=== PATIENT | female | born 1945 | race Caucasian/White ===

== ENCOUNTER 2020-05-06 12:58 | Outpatient (RCR) | payer MEDICARE, OTHER, SELFPAY | END 2020-05-17 23:59 | disposition home or self-care (01) | LOC: GPT 12:58 | PROVIDERS: Family Provider Family Medicine; PCP Family Medicine; Referring Provider Orthopaedic Surgery Foot and Ankle Surgery; Visit Provider Orthopaedic Surgery Foot and Ankle Surgery | DX: M25.571 Pain in right ankle and joints of right foot (principal); M19.079 Primary osteoarthritis, unspecified ankle and foot | CPT/HCPCS: 97110; 97140; 97161; 97530 ==

== ENCOUNTER 2020-05-18 06:00 | Outpatient (RCR) | payer MEDICARE, OTHER, SELFPAY | END 2020-06-17 23:59 | disposition home or self-care (01) | LOC: GPT 06:00 | PROVIDERS: Family Provider Family Medicine; PCP Family Medicine; Referring Provider Orthopaedic Surgery Foot and Ankle Surgery; Visit Provider Orthopaedic Surgery Foot and Ankle Surgery | DX: M25.571 Pain in right ankle and joints of right foot (principal); M19.079 Primary osteoarthritis, unspecified ankle and foot | CPT/HCPCS: 97032; 97110; 97112; 97140; 97164; 97530; 97760 ==

== ENCOUNTER 2020-06-18 06:00 | Outpatient (RCR) | payer MEDICARE, OTHER, SELFPAY | END 2020-07-18 23:59 | disposition home or self-care (01) | LOC: GPT 06:00 | PROVIDERS: Family Provider Family Medicine; PCP Family Medicine; Referring Provider Orthopaedic Surgery Foot and Ankle Surgery; Visit Provider Orthopaedic Surgery Foot and Ankle Surgery | DX: M25.571 Pain in right ankle and joints of right foot (principal) | CPT/HCPCS: 97032; 97110; 97112; 97140; 97530 ==

== ENCOUNTER → 2022-06-01 10:13 | Outpatient (BNVA) | payer MEDICARE, OTHER, SELFPAY | PROVIDERS: Family Provider Family Medicine; PCP Family Medicine; Visit Provider Family Medicine | DX: R05.9 Cough, unspecified (principal); J11.1 Influenza due to unidentified influenza virus with other respiratory manifestations | CPT/HCPCS: 87400 ==

== ENCOUNTER → 2024-09-01 17:36 | Outpatient (BNVA) | payer MEDICARE, OTHER, SELFPAY | PROVIDERS: Family Provider Family Medicine; PCP Family Medicine; Visit Provider Family Medicine | DX: I10 Essential (primary) hypertension (principal); E11.65 Type 2 diabetes mellitus with hyperglycemia; E78.2 Mixed hyperlipidemia; D64.9 Anemia, unspecified; G31.84 Mild cognitive impairment of uncertain or unknown etiology; R30.0 Dysuria | CPT/HCPCS: 80053; 80061; 82043; 82607; 83036; 83540; 84443; 85025; 87086 ==

== ENCOUNTER 2024-10-13 14:15 | Inpatient (IN) | payer MEDICARE, OTHER, SELFPAY ==
[2024-10-13 14:26] VITALS: BP 141/77; PULSE 87; RESP 22; TEMP 36.9; O2SAT 94; BMI 37.0
--- NOTE | 2024-10-13 17:19 | XRR_ITS ---
PROCEDURE INFORMATION: Exam: XR Chest Exam date and time: 10/13/2024 5:24 PM Age: 78 years old Clinical indication: Other: Congestion; Prior surgery; Surgery date: 1-6 months; Surgery type: Aortic valve; Additional info: Weakness TECHNIQUE: Imaging protocol: Radiologic exam of the chest. Views: 1 view. COMPARISON: No relevant prior studies available. FINDINGS: Lungs: The lungs are clear. Pleural spaces: No pneumothorax or pleural effusion. Heart/Mediastinum: Heart size is enlarged. Prosthetic aortic valve is present. Mediastinal contours unremarkable. Bones/joints: No acute osseous or soft tissue abnormality. Right shoulder arthroplasty partially seen without evidence of hardware complication. XR/XR chest 1V portable [id number] IMPRESSION: 1. The lungs are clear. 2. Cardiomegaly.
[2024-10-13 19:07] LABS: Basophils # 0.1 10^3/uL (0.0-0.1); Basophils % 0.3 %; Eosinophils % 0.2 %; Hematocrit 32.4 % (36-47); Lymphocytes # 1.3 10^3/uL (0.8-4.8); Lymphocytes % 7.4 %; Mean Corpuscular HGB Conc 32.4 g/dL (30-55); Mean Corpuscular Hemoglobin 27.6 pg (27-33); Mean Corpuscular Volume 85.3 fl (85-98); Mean Platelet Volume 8.9 fL (7.4-10.4); Monocytes # 0.9 10^3/uL (0.2-0.9); Monocytes % 5.2 %; Neutrophils # 15.13 10^3/uL (1.8-7.7); Neutrophils % 85.6 %; Nucleated Red Blood Cells % 0 %; Platelet Count 131 10^3/cmm (157-399); Red Cell Distribution Width 14.5 % (12.1-15.1); White Blood Count 17.66 10^3/uL (3.29-11.43)
[2024-10-13 19:23] LABS: Lactic Sepsis W/Reflex 1.1 mmol/L (0.5-2.2)
[2024-10-13 19:27] LABS: Alanine Aminotransferase 9 U/L (0-33); Albumin Level 3.6 g/dL (3.5-5.2); Alkaline Phosphatase 109 U/L (35-105); Anion Gap 20.1 (5-19); Aspartate Amino Transferase 11 U/L (0-32); Blood Urea Nitrogen 10 mg/dL (8-23); Carbon Dioxide 18 mmol/L (22-29); Chloride 91 mmol/L (98-107); Creatinine Clr Calc Pharmacy 58.3414; Globulin 3.2 g/dL (1.3-4.6); Glucose 91 mg/dL (65-115); Osmolality Calculated 259 mOsm/kg (285-295); Potassium 4.1 mmol/L (3.5-5.1); Sodium 125 mmol/L (136-145); Total Bilirubin 0.7 mg/dL (0.15-1.2); Total Protein 6.8 g/dL (6.6-8.7)
[2024-10-13 21:26] VITALS: BP 156/81; PULSE 85; RESP 16; O2SAT 99
[2024-10-13 22:03] VITALS: BP 159/89; PULSE 84; RESP 18; O2SAT 98
[2024-10-13 22:17] LABS: Bilirubin Urine Negative (Negative); Blood Urine Negative (Negative); Glucose Urine UA Negative (Normal); Ketones Urine Trace (Negative); Leukocyte Esterase Urine 1+ (Negative); Nitrate Urine Negative (Negative); Protein Urine 1+ (Negative); Specific Gravity, Urine 1.016 (1.005-1.030); Urine Appearance Cloudy (CLEAR); pH Urine 5.5 (5-7)
--- NOTE | 2024-10-13 22:18 | W.ED.WEAKNES ---
HPI - Weakness General: Chief complaint: Weakness Stated complaint: dr felder, congestion, n/v, pain when walking Time Seen by Provider: 10/13/24 21:24 History of Present Illness: Patient is a generally well-appearing 78-year-old female seen for generalized weakness, nausea, vomiting, confusion which have been getting worse over the last few days. She also complains of bilateral bottom of the foot pain which is worse with walking better with rest. She denies cough, fever, chest pain, shortness of breath, headache, neck pain, visual disturbance, and has no abdominal pain associate with nausea and vomiting. She has not had any diarrhea. She has a history of a bovine heart valve replacement but does not take blood thinner medication. She denies dysuria and frequency. states that previously she is able to walk around just fine but today she requires full assist just to transfer from the bed to the chair and needs significant help getting to the bathroom. Her general weakness is the cause for visit emergency department. [facility] PFSH: Medical History (Updated 10/14/24 @ 02:23 by Mario Ivan MD) Mild cognitive impairment SLUMS 18 on 09.01.24 Anemia Cervical spondylosis Hx of ovarian cyst had seen Dr. Do--stable over 2 yrs, no further f/u Hx of bladder cancer last visit with urologist Dr. Caceres at [facility] was 11/02--released due to no recurrence over 5 yrs Aortic stenosis, severe [facility] cardio--now has had TAVR Leiomyoma of uterus incidental Mixed hyperlipidemia Hypertension, essential Rheumatoid arthritis seeing [facility] rheumatology Type 2 diabetes mellitus with hyperglycemia Surgical History (Updated 09/01/24 @ 15:37 by Suly Christie MD) History of transcatheter aortic valve replacement (TAVR) 2024 Hx of cardiac cath 06.03.24 AT [facility]--no CAD; done for pre-op TAVR Hx of vascular surgery IR for laser arterectomy and angioplasty of DP and PT arteries of R foot at [place] 2020 History of arthroplasty of right shoulder Hx of unilateral salpingectomy Right Hx of transurethral destruction of bladder lesion bladder cancer X 2 Hx of tonsillectomy Hx of abdominoplasty Hx of breast augmentation Hx of bilateral cataract extraction History of lumbar spinal fusion 4.3.17 History of ankle surgery R ankle arthrodesis with kayla bone graft and augment; 2019 Hx of colonoscopy with polypectomy 1.19.24 tubular adenomas; no further f/u for screening due to age Family History Mother CAD (coronary artery disease) Father CAD (coronary artery disease) Social History Smoking and tobacco/nicotine status: former use of tobacco/nicotine Quit status (tobacco/nicotine): has quit using Year quit tobacco: 2003 Alcohol intake: current Alcohol intake frequency: few times a month Alcohol type: beer and wine Substance/Drug Use: never Household members: spouse Marital status: Number of children: 3 Highest education level completed: Some College, No Degree Current occupational status: retired 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 No meningismus. Resp: COMMON NORMALS: normal respiratory effort and No retractions Cardio: COMMON NORMALS: regular rate, regular rhythm and No murmurs present (Cardio) RATE: regular rate RHYTHM: regular rhythm GI: COMMON NORMALS: Normal to inspection, nondistended, normoactive bowel sounds present, Soft to palpation and non-tender PALPATION: Yes Soft to palpation Extremity: OTHER: Trace edema on the bilateral feet and lower legs. Tenderness with palpation of the pads of both feet. Robust pulses both DP and TP by bilaterally. Neuro: COMMON NORMALS: patient oriented x3 SENSORIUM/ORIENTATION: Yes alert OTHER: No lateralizing deficits of strength or sensation. Generally weak. Skin: COMMON NORMALS: no rashes or lesions noted GENERAL SKIN EXAM: no rashes or lesions noted Course Vital Signs: Vital signs: Vital Signs Temperature 98.5 F 10/13/24 14:26 Pulse Rate 86 10/14/24 01:00 Respiratory Rate 20 H 10/14/24 01:00 Blood Pressure 152/69 10/14/24 01:00 Pulse Oximetry 94 10/14/24 01:00 Oxygen Delivery Me thod Room Air 10/13/24 14:26 MDM - Weakness Medical Decision Making In summary, patient is a previously well 78-year-old female from home seen for profound weakness, nausea, vomiting, and mild confusion. Urinalysis is not completely compelling but could represent UTI for which she was given ceftriaxone. White blood cell count is significantly elevated at 17,000. She is hyponatremic at 125. This may be due to her nausea and vomiting and decreased oral intake. Regardless, she is profoundly weak when normally she is able to walk around without difficulty. She has no lateralizing deficits to imply stroke. She will be given IV fluids to gently correct her hyponatremia and admitted to the hospitalist service for further observation and care Lab Data 10/13/24 18:45 10/13/24 18:45 Radiology Impressions Chest X-Ray 10/13/24 17:19 IMPRESSION: 1. The lungs are clear. 2. Cardiomegaly. Laboratory Results WBC 17.66 10^3/uL (3.29-11.43) H 10/13/24 18:45 RBC 3.80 10^6/uL (3.85-5.65) L 10/13/24 18:45 Hgb 10.50 g/dL (11.27-16.99) L 10/13/24 18:45 Hct 32.4 % (36-47) L 10/13/24 18:45 MCV 85.3 fl (85-98) 10/13/24 18:45 MCH 27.6 pg (27-33) 10/13/24 18:45 MCHC 32.4 g/dL (30-55) 10/13/24 18:45 RDW 14.5 % (12.1-15.1) 10/13/24 18:45 Plt Count 131 10^3/cmm (157-399) L 10/13/24 18:45 MPV 8.9 fL (7.4-10.4) 10/13/24 18:45 Neut % (Auto) 85.6 % 10/13/24 18:45 Lymph % (Auto) 7.4 % 10/13/24 18:45 [place] % (Auto) 5.2 % 10/13/24 18:45 Eos % (Auto) 0.2 % 10/13/24 18:45 Baso % (Auto) 0.3 % 10/13/24 18:45 Neut # (Auto) 15.13 10^3/uL (1.8-7.7) H 10/13/24 18:45 Lymph # (Auto) 1.3 10^3/uL (0.8-4.8) 10/13/24 18:45 [place] # (Auto) 0.9 10^3/uL (0.2-0.9) 10/13/24 18:45 Eos # (Auto) 0.0 10^3/uL (0.0-0.8) 10/13/24 18:45 Baso # (Auto) 0.1 10^3/uL (0.0-0.1) 10/13/24 18:45 Nucleated RBC % (auto) 0 % 10/13/24 18:45 Nucleated RBCs # 0.0 /100WBC 10/13/24 18:45 Sodium 125 mmol/L (136-145) L 10/13/24 18:45 Potassium 4.1 mmol/L (3.5-5.1) 10/13/24 18:45 Chloride 91 mmol/L (98-107) L 10/13/24 18:45 Carbon Dioxide 18 mmol/L (22-29) L 10/13/24 18:45 Anion Gap 20.1 (5-19) H 10/13/24 18:45 BUN 10 mg/dL (8-23) 10/13/24 18:45 Creatinine 0.7 mg/dL (0.5-0.9) 10/13/24 18:45 GFR Calculation Not Reportable 10/13/24 18:45 Glucose 91 mg/dL (65-115) 10/13/24 18:45 Calculated Osmolality 259 mOsm/kg (285-295) L 10/13/24 18:45 Lactic Acid 1.1 mmol/L (0.5-2.2) 10/13/24 18:45 Calcium 9.0 mg/dL (8.5-10.5) 10/13/24 18:45 Total Bilirubin 0.7 mg/dL (0.15-1.2) 10/13/24 18:45 AST 11 U/L (0-32) 10/13/24 18:45 ALT 9 U/L (0-33) 10/13/24 18:45 Alkaline Phosphatase 109 U/L (35-105) H 10/13/24 18:45 Troponin T Baseline 18 ng/L (0-10) H 10/13/24 22:55 Troponin T 120 Minute 17.18 ng/L (0-10) H 10/14/24 00:38 Delta Troponin T -0.82 ABS# (0-10) L 10/14/24 00:38 Total Protein 6.8 g/dL (6.6-8.7) 10/13/24 18:45 Albumin 3.6 g/dL (3.5-5.2) 10/13/24 18:45 Globulin 3.2 g/dL (1.3-4.6) 10/13/24 18:45 Procalcitonin 0.70 ng/mL (0-0.5) H 10/13/24 18:45 Urine Color Yellow (Yellow) 10/13/24 22:04 Urine Appearance Cloudy (CLEAR) A 10/13/24 22:04 Urine pH 5.5 (5-7) 10/13/24 22:04 Ur Specific [place] 1.016 (1.005-1.030) 10/13/24 22:04 Urine Protein 1+ (Negative) A 10/13/24 22:04 Urine Glucose (UA) Negative (Normal) 10/13/24 22:04 Urine Ketones Trace (Negative) 10/13/24 22:04 Urine Blood Negative (Negative) 10/13/24 22:04 Urine Nitrate Negative (Negative) 10/13/24 22:04 Urine Bilirubin Negative (Negative) 10/13/24 22:04 Urine Urobilinogen 1.0 mg/dL (Negative) 10/13/24 22:04 Ur Leukocyte Esterase 1+ (Negative) A 10/13/24 22:04 Urine RBC 11-20 /hpf (0-2) H 10/13/24 22:04 Urine WBC 6-10 /hpf (0-5) 10/13/24 22:04 Ur Squamous Epith Cells 21-50 /hpf (0-5) H 10/13/24 22:04 Amorphous Sediment Not Reportable 10/13/24 22:04 Urine Bacteria 3+ /hpf (NONE) H 10/13/24 22:04 Hyaline Casts 9.07 /lpf 10/13/24 22:04 All radiology interpretation(s) finalized by discharge Discharge Plan Discharge Patient Disposition: Admitted As Inpatient Admit Provider: Mario Ivan Clinical Impression: Acute UTI, Acute hyponatremia Condition: Stable Prescriptions: No Action amlodipine 5 mg tablet 5 mg PO DAILY Qty: 90 3RF hydrochlorothiazide 12.5 mg tablet 12.5 mg PO DAILY Qty: 90 3RF omeprazole 40 mg capsule,delayed release(DR/EC) 40 mg PO DAILY Qty: 90 3RF rosuvastatin 10 mg tablet 10 mg PO DAILY Qty: 90 3RF trazodone 50 mg tablet 50 mg PO DAILY Qty: 90 3RF tramadol 50 mg tablet 50 mg PO Q6H PRN (Reason: pain) 90 Days Qty: 90 0RF leflunomide 20 mg tablet 20 mg PO DAILY halobetasol propionate 0.05 % cream 1 applic topical DAILY aspirin [Adult Aspirin Regimen] 81 mg tablet,delayed release (DR/EC) 81 mg PO DAILY lisinopril 40 mg tablet 20 mg PO ONCE Qty: 90 1RF hydroxychloroquine 200 mg tablet 200 mg PO BID Qty: 60 2RF Referrals: Suly Christie MD [Primary Care Provider] - Print Language: Polish Coding Level of Care Code ED Genetic Supervisor for g Fwd Related Data Home Medications ?Medication ?Instructions ?Recorded ?Confirmed aspirin 81 mg tablet,delayed 81 mg PO DAILY 03/06/24 09/01/24 release (Adult Aspirin Regimen) halobetasol propionate 0.05 % 1 applic topical DAILY 03/06/24 09/01/24 topical cream leflunomide 20 mg tablet 20 mg PO DAILY 03/06/24 09/01/24 Previous Rx's ?Medication ?Instructions ?Recorded lisinopril 40 mg tablet 20 mg (1/2 x 40 mg) PO ONCE #90 08/19/24 tabs amlodipine 5 mg tablet 5 mg PO DAILY #90 tabs 09/01/24 hydrochlorothiazide 12.5 mg tablet 12.5 mg PO DAILY #90 tabs 09/01/24 omeprazole 40 mg capsule,delayed 40 mg PO DAILY #90 caps 09/01/24 release rosuvastatin 10 mg tablet 10 mg PO DAILY #90 tabs 09/01/24 tramadol 50 mg tablet 50 mg PO Q6H PRN pain 90 days #90 09/01/24 tabs trazodone 50 mg tablet 50 mg PO DAILY #90 tabs 09/01/24 hydroxychloroquine 200 mg tablet 200 mg PO BID #60 tabs 09/16/24 Allergies Allergy/AdvReac Type Severity Reaction Status Date / Time adhesove tape Allergy blisters Uncoded 10/13/24 14:42
[2024-10-13 22:19] LABS: Bacteria Urine 3+ /hpf; Hyaline Casts Urine 9.07 /lpf; Squamous Epithelial Cell Urine 21-50 /hpf (0-5)
--- NOTE | 2024-10-13 22:20 | ECG_ITS ---
[facility] Test Date: 2024-10-14 Pat Name: Breanne Gilmore Department: Room: Gender: Female Process Pumper: : 1945 Requested By: Mauricio Peacre Order Number: [id number] Reading MD: Measurements Intervals [place] Rate: 88 P: 31 NH: 172 QRS: -32 QRSD: 94 T: 32 QT: 334 QTc: 406 Interpretive Statements SINUS RHYTHM WITH SINUS ARRHYTHMIA LEFT AXIS DEVIATION [QRS AXIS < -30] LOW QRS VOLTAGE IN PRECORDIAL LEADS [QRS DEFLECTION < 1.0 mV IN CHEST LEADS] PATTERN CONSISTENT WITH PULMONARY DISEASE No previous ECG available for comparison [email or web address]
[2024-10-13 22:29] LABS: Add Urine Culture? No; UA Slide Review UA Slide Review Perf; Urine Color Yellow (Yellow)
[2024-10-13 23:17] VITALS: BP 139/103; PULSE 87; RESP 24; O2SAT 97
[2024-10-13 23:23] LABS: Troponin(5th) Baseline 18 ng/L (0-10)
[2024-10-14] VITALS (8 sets, daily range): BP systolic 140–169; BP diastolic 69–84; PULSE 83–94; RESP 17–22; TEMP 36.8–37.3; O2SAT 91–98; BMI 39.0; BMI 37.5
[2024-10-14 01:05] LABS: Troponin 5 2HR 17.18 ng/L (0-10)
[2024-10-14 01:06] LABS: Troponin 5 2HR Delta -0.82 ABS# (0-10)
[2024-10-14] MEDS: cefTRIAXone 2,000 mg SDV 2000 MG IVP (01:11)
--- NOTE | 2024-10-14 02:18 | PM.HP ---
Providers/Chief Complaint Admitting Physician: Mario Ivan MD Primary Care Provider: Suly Christie MD Chief Complaint: dr emerita, congestion, n/v, pain when walking History of Present Illness Breanne Gilmore is a 78 year old female with history of rheumatoid arthritis is on leflunomide and hydroxychloroquine. Last several days she has had nausea vomiting loss of appetite some confusion intermittently and weakness. She has not had fevers or chills. She has had cough productive of just clear mucus. She denies dysuria but her urine was positive for bacteria on straight cath. She also has peripheral white count of 17,000. She is accompanied by her . Her history giving is a little off today but he reminds her of nausea that she has had and reports intermittent confusion. Patient states she has been on HCTZ for greater than 5 years and runs low sodium all the time. Her last sodium in August was 135 Review of Systems Narrative: General no fevers chills Cardiovascular no chest pain or palpitations Respiratory positive for cough with clear mucus GI positive nausea vomiting no diarrhea constipation Musculoskeletal she has chronic swelling in her injured right leg. Left leg not swelling Neuro she denies seizures or stroke Medications/Allergies Home Medications ?Medication ?Instructions ?Recorded ?Confirmed ?Last Taken ?Type aspirin 81 mg tablet,delayed 81 mg PO DAILY 03/06/24 09/01/24 Unknown History release (Adult Aspirin Regimen) halobetasol propionate 0.05 % 1 applic topical DAILY 03/06/24 09/01/24 Unknown History topical cream leflunomide 20 mg tablet 20 mg PO DAILY 03/06/24 09/01/24 Unknown History lisinopril 40 mg tablet 20 mg (1/2 x 40 mg) PO ONCE #90 08/19/24 09/01/24 Unknown Rx tabs amlodipine 5 mg tablet 5 mg PO DAILY #90 tabs 09/01/24 09/01/24 Unknown Rx hydrochlorothiazide 12.5 mg tablet 12.5 mg PO DAILY #90 tabs 09/01/24 09/01/24 Unknown Rx omeprazole 40 mg capsule,delayed 40 mg PO DAILY #90 caps 09/01/24 09/01/24 Unknown Rx release rosuvastatin 10 mg tablet 10 mg PO DAILY #90 tabs 09/01/24 09/01/24 Unknown Rx tramadol 50 mg tablet 50 mg PO Q6H PRN pain 90 days #90 03/17/25 03/17/25 Unknown Rx tabs trazodone 50 mg tablet 50 mg PO DAILY #90 tabs 09/01/24 09/01/24 Unknown Rx hydroxychloroquine 200 mg tablet 200 mg PO BID #60 tabs 09/16/24 Unknown Rx Allergies Allergy/AdvReac Type Severity Reaction Status Date / Time adhesove tape Allergy blisters Uncoded 10/13/24 14:42 PFSH Acute PFSH: Medical History (Updated 10/14/24 @ 02:23 by Mario Ivan MD) Mild cognitive impairment SLUMS 18 on 09.01.24 Anemia Cervical spondylosis Hx of ovarian cyst had seen Dr. Do--stable over 2 yrs, no further f/u Hx of bladder cancer last visit with urologist Dr. Caceres at [facility] was 11/02--released due to no recurrence over 5 yrs Aortic stenosis, severe [facility] cardio--now has had TAVR Leiomyoma of uterus incidental Mixed hyperlipidemia Hypertension, essential Rheumatoid arthritis seeing [facility] rheumatology Type 2 diabetes mellitus with hyperglycemia Surgical History (Updated 09/01/24 @ 15:37 by Suly Christie MD) History of transcatheter aortic valve replacement (TAVR) 2024 Hx of cardiac cath 06.03.24 AT [facility]--no CAD; done for pre-op TAVR Hx of vascular surgery IR for laser arterectomy and angioplasty of DP and PT arteries of R foot at 2020 History of arthroplasty of right shoulder Hx of unilateral salpingectomy Right Hx of transurethral destruction of bladder lesion bladder cancer X 2 Hx of tonsillectomy Hx of abdominoplasty Hx of breast augmentation Hx of bilateral cataract extraction History of lumbar spinal fusion 4.3.17 History of ankle surgery R ankle arthrodesis with kayla bone graft and augment; 2019 Hx of colonoscopy with polypectomy 07.06.23 tubular adenomas; no further f/u for screening due to age Family History Mother CAD (coronary artery disease) Father CAD (coronary artery disease) Social History Smoking and tobacco/nicotine status: former use of tobacco/nicotine Quit status (tobacco/nicotine): has quit using Year quit tobacco: 2004 Alcohol intake: current Alcohol intake frequency: few times a month Alcohol type: beer and wine Substance/Drug Use: never Household members: spouse Marital status: Number of children: 3 Highest education level completed: Some College, No Degree Current occupational status: retired 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, 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 Vitals/I&O/Wt Last Vital Signs Temp 98.5 F 10/13/24 14:26 Pulse 86 10/14/24 01:00 Resp 20 H 10/14/24 01:00 BP 152/69 10/14/24 01:00 Pulse Ox 94 10/14/24 01:00 O2 Del Method Room Air 10/13/24 14:26 Weight last 48 hrs Weight 86.183 kg Physical Exam Narrative: General well-developed well-nourished obese female in no acute cardiopulmonary distress CV regular rate and rhythm Lungs clear to auscultation bilaterally Abdomen positive bowel sound soft nontender Calves left side no edema right ankle with postsurgical change and shortening of the tibia fibula lower leg as well as some deformity of the foot and edema in the foot Skin warm and dry Mentation she is alert and oriented x 3 and pleasant Data 10/13/24 18:45 10/13/24 18:45 Micro: Microbiology 10/13/24 18:45 Blood Culture - Preliminary Blood SPECIMEN COLLECTED 10/13/24 18:45 Blood Culture - Preliminary Blood SPECIMEN COLLECTED A&P Assessment and plan (1) Acute hyponatremia: Patient sodium 125 and she has had confusion nausea vomiting weakness we will replace with saline drip and stop HCTZ. I do not think she is a good candidate for that medication based on her reported hyponatremia but her last sodium here was only 135 not that low (2) Rheumatoid arthritis: She is immunosuppressed on leflunomide and hydroxychloroquine. Will continue with Rocephin pending urine and blood cultures Qualifiers: Rheumatoid arthritis location: multiple sites Rheumatoid factor presence: with rheumatoid factor Qualified Code(s): M05.79 - Rheumatoid arthritis with rheumatoid factor of multiple sites without organ or systems involvement (3) Hx of bladder cancer: Question of UTI but she has history of bladder cancer with hematuria and bacteriuria. Await urine studies this may need to be reevaluated for possible bladder tumor (4) UTI (urinary tract infection): As above although she is asymptomatic for dysuria PDMP PDMP Reviewed: Not Reviewed Attestations Medical Necessity Statement*: Patient admitted to the hospital for anticipated greater than 2 nights for correction of hyponatremia confusion and initiation of PT and OT Coding Level of Care Code 58971 Diagnoses Acute hyponatremia E87.1 Rheumatoid arthritis involving multiple sites with positive rheumatoid factor M05.79 Rheumatoid arthritis location: multiple sites Rheumatoid factor presence: with rheumatoid factor Hx of bladder cancer Z85.51 UTI (urinary tract infection) N39.0 Time Spent (min) 70
[2024-10-14] MEDS: enoxaparin 40 mg/0.4 mL Syringe SUBCUT (04:17)
[2024-10-14] MEDS: sodium chlor 0.9% + KCl 20 mEq 20 MEQ/1,000 ML BAG 100 MEQ IV (04:17)
[2024-10-14] MEDS: amlodipine 5 mg Tablet PO (07:34)
[2024-10-14] MEDS: trazodone 50 mg Tablet PO (07:34)
[2024-10-14] MEDS: aspirin 81 mg EC Tablet PO (07:35)
[2024-10-14] MEDS: pantoprazole DR 40 mg Tablet PO (07:35)
[2024-10-14] MEDS: atorvastatin 40 mg Tablet DOBHOFF (07:35)
--- NOTE | 2024-10-14 10:33 | P.PN_ITS ---
Subjective 2 Subjective: She is reporting feeling little bit better today. She wakes up easily to voice. She is oriented to place and year. She has not had any further nausea or vomiting so far. She was able to tolerate part of her breakfast this morning. Vitals/I&O/Wt Last Vital Signs Temp 99.1 F 10/14/24 08:00 Pulse 87 10/14/24 08:00 Resp 18 10/14/24 08:00 BP 160/72 10/14/24 08:00 Pulse Ox 97 10/14/24 08:00 O2 Del Method Room Air 10/14/24 08:00 10/13/24 10/14/24 10/14/24 22:59 06:59 14:59 Intake Total 354 / 354 Balance 354 / 354 Weight last 48 hrs Weight 87.09 kg Weight 87.226 kg Weight 90.718 kg Weight 86.183 kg Physical Exam 2 Const: COMMON NORMALS: patient oriented x3 and alert GENERAL APPEARANCE: c ooperative ORIENTATION/CONSCIOUSNESS: Yes awake HENMT: COMMON NORMALS: oropharynx normal Neck/C-Spine: COMMON NORMALS: no JVD Resp: COMMON NORMALS: normal respiratory effort and clear to auscultation bilaterally AUSCULTATION: clear to auscultation bilaterally Cardio: COMMON NORMALS: no JVD, regular rhythm, S1 normal heart sound present, S2 normal heart sound present and No murmurs present (Cardio) RHYTHM: regular rhythm HEART SOUNDS: S1 normal heart sound present and S2 normal heart sound present GI: COMMON NORMALS: Normal to inspection, nondistended, normoactive bowel sounds present, Soft to palpation and non-tender PALPATION: Yes Soft to palpation Extremity: COMMON NORMALS: no joint enlargement and no pedal edema Neuro: COMMON NORMALS: patient oriented x3 and moves all extremities S ENSORIUM/ORIENTATION: Yes alert Skin: COMMON NORMALS: no rashes or lesions noted GENERAL SKIN EXAM: no rashes or lesions noted Data 10/13/24 18:45 10/13/24 18:45 Micro: Microbiology 10/13/24 18:45 Blood Culture - Preliminary Blood SPECIMEN COLLECTED 10/13/24 18:45 Blood Culture - Preliminary Blood SPECIMEN COLLECTED A&P Assessment and plan (1) Acute hyponatremia: Mental status appears to be improving, she is more alert, oriented to place and year. Metabolic encephalopathy on presentation with hyponatremia, urinary tract infection, so far appears to be improving/resolving. So far nausea and vomiting without recurrence. She was able to tolerate part of her breakfast this morning. Recheck labs are not available. Reviewed vitals, CBC, CMP, UA. TLA drops are up from yesterday. This seems to have been difficulty drawing labs this morning, she does remember at times being made. I requested repeat labs CBC, BMP. Pending recheck discussed with nursing, complex case manager. Continue to withhold HCTZ. Antiemetic as needed. Trial of regular diet. (2) Rheumatoid arthritis: She is immunosuppressed on leflunomide and hydroxychloroquine. Will continue with Rocephin pending urine and blood cultures Reviewed cultures, without growth so far. Gram stain negative. Qualifiers: Rheumatoid arthritis location: multiple sites Rheumatoid factor presence: with rheumatoid factor Qualified Code(s): M05.79 - Rheumatoid arthritis with rheumatoid factor of multiple sites without organ or systems involvement (3) Hx of bladder cancer: Question of UTI but she has history of bladder cancer with hematuria and bacteriuria. Await urine studies this may need to be reevaluated for possible bladder tumor (4) UTI (urinary tract infection): Continue ceftriaxone. Follow-up urine culture. PDMP PDMP Reviewed: Not Reviewed Attestations 2 Medical Necessity Statement*: Continue admission for assessment management of hyponatremia complicated by acute metabolic cephalopathy, urinary tract infection. and High MDM includes amount and/or complexity of data reviewed/ordered [ resulted lab(s)/test(s), ordered lab(s)/test(s) and other healthcare professional discussion] as documented Diagnoses Acute hyponatremia E87.1 Rheumatoid arthritis involving multiple sites with positive rheumatoid factor M05.79 Rheumatoid arthritis location: multiple sites Rheumatoid factor presence: with rheumatoid factor Hx of bladder cancer Z85.51 UTI (urinary tract infection) N39.0
[2024-10-14 11:00] LABS: Basophils % 0.3 %; Eosinophils # 0.1 10^3/uL (0.0-0.8); Eosinophils % 0.7 %; Hematocrit 32.1 % (36-47); Lymphocytes # 0.9 10^3/uL (0.8-4.8); Lymphocytes % 6.6 %; Mean Corpuscular HGB Conc 32.4 g/dL (30-55); Mean Corpuscular Hemoglobin 26.9 pg (27-33); Mean Corpuscular Volume 82.9 fl (85-98); Mean Platelet Volume 8.9 fL (7.4-10.4); Monocytes # 0.6 10^3/uL (0.2-0.9); Monocytes % 4.6 %; Neutrophils # 11.59 10^3/uL (1.8-7.7); Neutrophils % 86.6 %; Nucleated Red Blood Cells % 0 %; Platelet Count 150 10^3/cmm (157-399); Red Blood Count 3.87 10^6/uL (3.85-5.65); Red Cell Distribution Width 14.6 % (12.1-15.1); White Blood Count 13.39 10^3/uL (3.29-11.43)
[2024-10-14] MEDS: fixodent 39 gm Tube 1 APPLIC DENTAL (11:03)
[2024-10-14 11:16] LABS: Alanine Aminotransferase 9 U/L (0-33); Albumin Level 3.3 g/dL (3.5-5.2); Alkaline Phosphatase 125 U/L (35-105); Anion Gap 14.9 (5-19); Aspartate Amino Transferase 12 U/L (0-32); Blood Urea Nitrogen 11 mg/dL (8-23); Calcium 8.4 mg/dL (8.5-10.5); Carbon Dioxide 21 mmol/L (22-29); Chloride 95 mmol/L (98-107); Globulin 3.4 g/dL (1.3-4.6); Glucose 142 mg/dL (65-115); Osmolality Calculated 266 mOsm/kg (285-295); Potassium 3.9 mmol/L (3.5-5.1); Sodium 127 mmol/L (136-145); Total Bilirubin 0.3 mg/dL (0.15-1.2); Total Protein 6.7 g/dL (6.6-8.7)
[2024-10-14 14:34] LABS: Basophils % 0.3 %; Eosinophils # 0.1 10^3/uL (0.0-0.8); Eosinophils % 1.1 %; Lymphocytes # 0.9 10^3/uL (0.8-4.8); Lymphocytes % 6.8 %; Mean Corpuscular HGB Conc 32.3 g/dL (30-55); Mean Corpuscular Hemoglobin 26.9 pg (27-33); Mean Corpuscular Volume 83.3 fl (85-98); Mean Platelet Volume 8.7 fL (7.4-10.4); Monocytes # 0.8 10^3/uL (0.2-0.9); Monocytes % 6.1 %; Neutrophils # 10.67 10^3/uL (1.8-7.7); Neutrophils % 83.9 %; Nucleated Red Blood Cells % 0 %; Platelet Count 138 10^3/cmm (157-399); Red Cell Distribution Width 14.4 % (12.1-15.1); White Blood Count 12.72 10^3/uL (3.29-11.43)
[2024-10-14 14:46] LABS: Sodium 125 mmol/L (136-145)
[2024-10-14] MEDS: TRAMadol 50 mg Tablet PO ×2 (16:46→22:51)
[2024-10-14] MEDS: cefTRIAXone 1,000 mg SDV 1000 MG IVP (22:46)
[2024-10-15 00:32] VITALS: BP 161/80; PULSE 82; RESP 18; TEMP 36.8; O2SAT 96
[2024-10-15 02:44] LABS: Basophils # 0.1 10^3/uL (0.0-0.1); Basophils % 0.5 %; Eosinophils # 0.3 10^3/uL (0.0-0.8); Eosinophils % 2.9 %; Hematocrit 28.8 % (36-47); Lymphocytes # 1.3 10^3/uL (0.8-4.8); Lymphocytes % 12.6 %; Mean Corpuscular HGB Conc 31.9 g/dL (30-55); Mean Corpuscular Hemoglobin 27.7 pg (27-33); Mean Corpuscular Volume 86.7 fl (85-98); Mean Platelet Volume 8.7 fL (7.4-10.4); Monocytes # 0.9 10^3/uL (0.2-0.9); Monocytes % 9.3 %; Neutrophils # 7.17 10^3/uL (1.8-7.7); Neutrophils % 72.1 %; Nucleated Red Blood Cells % 0 %; Platelet Count 147 10^3/cmm (157-399); Red Blood Count 3.32 10^6/uL (3.85-5.65); Red Cell Distribution Width 14.6 % (12.1-15.1); White Blood Count 9.94 10^3/uL (3.29-11.43)
[2024-10-15 05:06] LABS: Anion Gap 14.9 (5-19); Blood Urea Nitrogen 13 mg/dL (8-23); Calcium 8.2 mg/dL (8.5-10.5); Carbon Dioxide 22 mmol/L (22-29); Chloride 96 mmol/L (98-107); Glucose 91 mg/dL (65-115); Osmolality Calculated 268 mOsm/kg (285-295); Potassium 3.9 mmol/L (3.5-5.1); Sodium 129 mmol/L (136-145)
[2024-10-15 05:47] VITALS: BP 139/76; PULSE 83; RESP 17; TEMP 36.8; O2SAT 94
[2024-10-15] MEDS: enoxaparin 40 mg/0.4 mL Syringe SUBCUT (06:03)
[2024-10-15 07:49] VITALS: BP 154/71; PULSE 89; RESP 19; TEMP 36.7; O2SAT 95
--- NOTE | 2024-10-15 08:21 | PM.DCS ---
Discharge Providers Date of Admission: 10/14/24 01:23 Date of Discharge: October 15, 2024 Attending Provider at Admission: Mario Ivan MD Attending Provider at Discharge: Jude Velasco Primary Care Provider: Suly Christie MD Diagnoses at Discharge Discharge Diagnosis (1) Acute hyponatremia: Status: Acute (2) Rheumatoid arthritis: Status: Chronic Qualifiers: Rheumatoid arthritis location: multiple sites Rheumatoid factor presence: with rheumatoid factor Qualified Code(s): M05.79 - Rheumatoid arthritis with rheumatoid factor of multiple sites without organ or systems involvement Permanent problem details: seeing [facility] rheumatology (3) Hx of bladder cancer: Status: Chronic Permanent problem details: last visit with urologist Dr. Caceres at [facility] was 11/02--released due to no recurrence over 5 yrs (4) UTI (urinary tract infection): Status: Acute Reason for Visit Reason for Visit: dr felder, congestion, n/v, pain when walking Brief History: Breanne Gilmore is a 78 year old female with history of rheumatoid arthritis is on leflunomide and hydroxychloroquine. Last several days she has had nausea vomiting loss of appetite some confusion intermittently and weakness. She has not had fevers or chills. She has had cough productive of just clear mucus. She denies dysuria but her urine was positive for bacteria on straight cath. She also has peripheral white count of 17,000. She is accompanied by her . Her history giving is a little off today but he reminds her of nausea that she has had and reports intermittent confusion. Patient states she has been on HCTZ for greater than 5 years and runs low sodium all the time. Her last sodium in August was 135 Hospital Course Hospital Course She was admitted and treated for acute hyponatremia, HCTZ was discontinued, she received transient IV hydration, started on treatment for suspected urinary tract infection. Mental status significantly improved. She has been awake and alert. Nausea and vomiting have resolved, possible gastroenteritis abated, she has been tolerating oral intake. Sodium continues to improve, and rising up to 129. She is doing much better, sitting up in the chair. Has worked with physical therapy with recommendation of continued home exercise program as per discussion with her. She is asked to discontinue HCTZ as well as if possible avoid tramadol due to risk of recurrent hyponatremia. Please follow-up sodium level. She knows to seek medical attention in case of worsening or new concerning symptoms. She is having some cough today with mild bronchitis. She is provided with Mucinex for any chest congestion, and will take antitussives as needed. She will complete a course of antibiotic with cefdinir for suspected urinary tract infection. With history of bladder cancer, please follow-up urine cultures. With noted microscopic hematuria and presentation, would benefit from follow-up with urology. Discussed with her to make an appointment with urology once she is feeling better to further assess microscopic hematuria with history of bladder cancer and exclude recurrence, she verbalized understanding and agreement. Physical Exam Narrative: She is awake and alert, sitting up in chair, pleasant, conversant, in good spirits. No nausea or vomiting. Tolerated breakfast. Having some cough this morning. Const: COMMON NORMALS: patient oriented x3 and alert GENERAL APPEARANCE: cooperative ORIENTATION/CONSCIOUSNESS: Yes awake HENMT: COMMON NORMALS: oropharynx normal Neck/C-Spine: COMMON NORMALS: no JVD Resp: COMMON NORMALS: normal respiratory effort OTHER: Mild rhonchi Cardio: COMMON NORMALS: no JVD, regular rhythm, S1 normal heart sound present, S2 normal heart sound present and No murmurs present (Cardio) RHYTHM: regular rhythm HEART SOUNDS: S1 normal heart sound present and S2 normal heart sound present GI: COMMON NORMALS: Normal to inspection, nondistended, normoactive bowel sounds present, Soft to palpation and non-tender PALPATION: Yes Soft to palpation Extremity: COMMON NORMALS: no joint enlargement and no pedal edema Neuro: COMMON NORMALS: patient oriented x3 and moves all extremities SENSORIUM/ORIENTATION: Yes alert Skin: COMMON NORMALS: no rashes or lesions noted GENERAL SKIN EXAM: no rashes or lesions noted Discharge Data Studies Completed and Pending Completed Studies During Hospitalization Category Date Time Status XR chest 1V portable [id number] Stat Exams 10/13/24 17:19 Completed Pending at discharge Category Date Time Status Basic Metabolic Panel AM LABS Lab 10/16/24 04:00 Ordered Basic Metabolic Panel AM LABS Lab 10/17/24 04:00 Ordered Blood Culture Stat Lab 10/13/24 18:45 Results Urine Culture Stat Lab 10/14/24 00:40 Received Radiology Impressions Chest X-Ray 10/13/24 17:19 IMPRESSION: 1. The lungs are clear. 2. Cardiomegaly. Laboratory Results WBC 9.94 10^3/uL (3.29-11.43) 10/15/24 01: RBC 3.32 10^6/uL (3.85-5.65) L 10/15/24 01: Hgb 9.20 g/dL (11.27-16.99) L 10/15/24 01: Hct 28.8 % (36-47) L 10/15/24 01: MCV 86.7 fl (85-98) 10/15/24 01: MCH 27.7 pg (27-33) 10/15/24 01: MCHC 31.9 g/dL (30-55) 10/15/24 01: RDW 14.6 % (12.1-15.1) 10/15/24 01: Plt Count 147 10^3/cmm (157-399) L 10/15/24 01: MPV 8.7 fL (7.4-10.4) 10/15/24 01: Neut % (Auto) 72.1 % 10/15/24 01: Lymph % (Auto) 12.6 % 10/15/24 01:30 Walker % (Auto) 9.3 % 10/15/24 01: Eos % (Auto) 2.9 % 10/15/24 01: Baso % (Auto) 0.5 % 10/15/24 01: Neut # (Auto) 7.17 10^3/uL (1.8-7.7) 10/15/24 01: Lymph # (Auto) 1.3 10^3/uL (0.8-4.8) 10/15/24 01: Walker # (Auto) 0.9 10^3/uL (0.2-0.9) 10/15/24 01: Eos # (Auto) 0.3 10^3/uL (0.0-0.8) 10/15/24 01: Baso # (Auto) 0.1 10^3/uL (0.0-0.1) 10/15/24 01: Nucleated RBC % (auto) 0 % 10/15/24 01: Nucleated RBCs # 0.0 /100WBC 10/15/24 01: Sodium 129 mmol/L (136-145) L 10/15/24 01:30 Potassium 3.9 mmol/L (3.5-5.1) 10/15/24 01:30 Chloride 96 mmol/L (98-107) L 10/15/24 01:30 Carbon Dioxide 22 mmol/L (22-29) 10/15/24 01:30 Anion Gap 14.9 (5-19) 10/15/24 01:30 BUN 13 mg/dL (8-23) 10/15/24 01:30 Creatinine 0.6 mg/dL (0.5-0.9) 10/15/24 01:30 GFR Calculation Not Reportable 10/15/24 01:30 Glucose 91 mg/dL (65-115) 10/15/24 01:30 Calculated Osmolality 268 mOsm/kg (285-295) L 10/15/24 01:30 Lactic Acid 1.1 mmol/L (0.5-2.2) 10/13/24 18:45 Calcium 8.2 mg/dL (8.5-10.5) L 10/15/24 01:30 Total Bilirubin 0.3 mg/dL (0.15-1.2) 10/14/24 10:53 AST 12 U/L (0-32) 10/14/24 10:53 ALT 9 U/L (0-33) 10/14/24 10:53 Alkaline Phosphatase 125 U/L (35-105) H 10/14/24 10:53 Troponin T Baseline 18 ng/L (0-10) H 10/13/24 22:55 Troponin T 120 Minute 17.18 ng/L (0-10) H 10/14/24 00:38 Delta Troponin T -0.82 ABS# (0-10) L 10/14/24 00:38 Troponin T Hi Sens 6Hr 17.60 ng/L (0-10) H 10/14/24 04:50 Troponin T Hi Sens 6Hr Delta -0.40 ng/L (0-12) L 10/14/24 04:50 Total Protein 6.7 g/dL (6.6-8.7) 10/14/24 10:53 Albumin 3.3 g/dL (3.5-5.2) L 10/14/24 10:53 Globulin 3.4 g/dL (1.3-4.6) 10/14/24 10:53 Procalcitonin 0.70 ng/mL (0-0.5) H 10/13/24 18:45 Urine Color Yellow (Yellow) 10/13/24 22:04 Urine Appearance Cloudy (CLEAR) A 10/13/24 22:04 Urine pH 5.5 (5-7) 10/13/24 22:04 Ur Specific Stout 1.016 (1.005-1.030) 10/13/24 22:04 Urine Protein 1+ (Negative) A 10/13/24 22:04 Urine Glucose (UA) Negative (Normal) 10/13/24 22:04 Urine Ketones Trace (Negative) 10/13/24 22:04 Urine Blood Negative (Negative) 10/13/24 22:04 Urine Nitrate Negative (Negative) 10/13/24 22:04 Urine Bilirubin Negative (Negative) 10/13/24 22:04 Urine Urobilinogen 1.0 mg/dL (Negative) 10/13/24 22:04 Ur Leukocyte Esterase 1+ (Negative) A 10/13/24 22:04 Urine RBC 11-20 /hpf (0-2) H 10/13/24 22:04 Urine WBC 6-10 /hpf (0-5) 10/13/24 22:04 Ur Squamous Epith Cells 21-50 /hpf (0-5) H 10/13/24 22:04 Amorphous Sediment Not Reportable 10/13/24 22:04 Urine Bacteria 3+ /hpf (NONE) H 10/13/24 22:04 Hyaline Casts 9.07 /lpf 10/13/24 22:04 Vitals Last Vital Signs Temp 98.1 F 10/15/24 07:49 Pulse 89 10/15/24 07:49 Resp 19 H 10/15/24 07:49 BP 154/71 10/15/24 07:49 Pulse Ox 95 10/15/24 07:49 O2 Del Method Room Air 10/15/24 07:49 Discharge Plan Discharge Patient Disposition: Home Condition: Stable Prescriptions: New cefdinir 300 mg capsule 300 mg PO BID 5 Days Qty: 10 0RF guaifenesin [Mucinex] 1,200 mg tablet extended release 12hr 1,200 mg PO BID PRN (Reason: congestion) Qty: 30 0RF Continued omeprazole 40 mg capsule,delayed release(DR/EC) 40 mg PO DAILY Qty: 90 3RF rosuvastatin 10 mg tablet 10 mg PO DAILY Qty: 90 3RF trazodone 50 mg tablet 50 mg PO DAILY Qty: 90 3RF leflunomide 20 mg tablet 20 mg PO DAILY aspirin [Adult Aspirin Regimen] 81 mg tablet,delayed release (DR/EC) 81 mg PO DAILY lisinopril 40 mg tablet 20 mg PO ONCE Qty: 90 1RF hydroxychloroquine 200 mg tablet 200 mg PO BID Qty: 60 2RF clopidogrel 75 mg tablet 75 mg PO DAILY Changed amlodipine 5 mg tablet 10 mg PO DAILY Qty: 90 3RF Discontinued hydrochlorothiazide 12.5 mg tablet 12.5 mg PO DAILY Qty: 90 3RF tramadol 50 mg tablet 50 mg PO Q6H PRN (Reason: pain) 90 Days Qty: 90 0RF Discharge Orders: Discharge Order (Routine); Ordered 10/15/24 Ordered By: Jude Velasco Referrals: Suly Christie MD [Primary Care Provider, [facility]] - 10/27/24 9:45 am Discharge Diet: Regular Discharge Activity: As per PT/OT instructions Patient Instructions: Decongestant/Expectorant (By mouth), Cefdinir (By mouth), Urinary Tract Infection in Women (GEN), Opioid Safety Activity Restrictions/Additional Instructions: Your low sodium is improving, please have your primary doctor follow-up your sodium level. Please discontinue hydrochlorothiazide and do not restart the medication as it causes recurrence of low sodium. If possible please avoid tramadol as well which can lead to hyponatremia, sometimes severe hyponatremia. Please complete antibiotic course for suspected urinary tract infection, follow-up with your primary doctor for reassessment and to follow-up on the final cultures. Follow-up with your primary doctor for reassessment of mild bronchitis. Take Mucinex as needed for chest congestion, and cough medicine as needed. Discharge Attestations Time Spent in Discharge Care*: greater than 30 min Quality Metrics Clinical Quality Measures [ No reported AMI, CVA or VTE this stay] Coding Level of Care Code 16509 Total time (in minutes) for Discharge: 50 Diagnoses Acute hyponatremia E87.1 Rheumatoid arthritis involving multiple sites with positive rheumatoid factor M05.79 Rheumatoid arthritis location: multiple sites Rheumatoid factor presence: with rheumatoid factor Hx of bladder cancer Z85.51 UTI (urinary tract infection) N39.0
[2024-10-15] MEDS: trazodone 50 mg Tablet PO (08:26)
[2024-10-15] MEDS: amlodipine 5 mg Tablet PO (08:26)
[2024-10-15] MEDS: atorvastatin 40 mg Tablet DOBHOFF (08:27)
[2024-10-15] MEDS: pantoprazole DR 40 mg Tablet PO (08:28)
[2024-10-15] MEDS: aspirin 81 mg EC Tablet PO (08:28)
--- NOTE | 2024-10-15 10:32 | PC.NURSE ---
Discharge Note Patient discharged to home via private vehicle accompanied by spouse. Discharge instructions reviewed with patient and/or personal financial representative. Mobile pharmacy medications and/or prescriptions provided. Belongings/home medications returned.
[2024-10-15 10:34] VITALS: BP 154/71; PULSE 89; RESP 19; TEMP 36.7; O2SAT 95
== END 2024-10-15 10:36 | disposition home or self-care (01) | DRG 640 ==
LOC: ER 22:20 → MEDSURG 10-14 02:42
PROVIDERS: Emergency Medicine; Admitting Provider Internal Medicine; Emergency Provider Student in an Organized Health Care Education/Training Program; PCP Family Medicine; Visit Provider Internal Medicine
DX: E87.1 Hypo-osmolality and hyponatremia (principal); G93.41 Metabolic encephalopathy; N39.0 Urinary tract infection, site not specified; T50.2X5A Adverse effect of carbonic-anhydrase inhibitors, benzothiadiazides and other diuretics, initial encounter; M05.9 Rheumatoid arthritis with rheumatoid factor, unspecified; K52.9 Noninfective gastroenteritis and colitis, unspecified; J40 Bronchitis, not specified as acute or chronic; R31.29 Other microscopic hematuria; G31.84 Mild cognitive impairment of uncertain or unknown etiology; D64.9 Anemia, unspecified; E78.2 Mixed hyperlipidemia; I10 Essential (primary) hypertension; Z79.891 Long term (current) use of opiate analgesic; Z79.02 Long term (current) use of antithrombotics/antiplatelets; Z85.51 Personal history of malignant neoplasm of bladder; Z98.1 Arthrodesis status; Z87.891 Personal history of nicotine dependence
CPT/HCPCS: 36415; 51701; 71045; 80048; 80053; 81001; 83605; 84145; 84295; 84484; 85025; 87040; 87086; 93005; 96372; 97161; 97165; J0696; J1650; J3480; J9999

== ENCOUNTER → 2024-10-27 11:18 | Outpatient (BNVA) | payer MEDICARE, OTHER, SELFPAY | PROVIDERS: PCP Family Medicine; Visit Provider Family Medicine | DX: I10 Essential (primary) hypertension (principal); I35.0 Nonrheumatic aortic (valve) stenosis; E87.1 Hypo-osmolality and hyponatremia; D64.9 Anemia, unspecified; N39.0 Urinary tract infection, site not specified | CPT/HCPCS: 85025; 87086 ==

== ENCOUNTER 2024-11-18 10:53 | Outpatient (CLI) | payer MEDICARE, OTHER, SELFPAY | END 2024-11-18 10:54 | disposition home or self-care (01) | LOC: SLEEP 10:55 | PROVIDERS: PCP Family Medicine; Referring Provider Family Medicine; Visit Provider Family Medicine | DX: R06.83 Snoring (principal) | CPT/HCPCS: 94762 ==

== ENCOUNTER → 2024-12-15 08:48 | Outpatient (BNVA) | payer MEDICARE, OTHER, SELFPAY | PROVIDERS: PCP Family Medicine; Visit Provider Family Medicine | DX: I10 Essential (primary) hypertension (principal); I35.0 Nonrheumatic aortic (valve) stenosis; E87.1 Hypo-osmolality and hyponatremia; D64.9 Anemia, unspecified; E11.65 Type 2 diabetes mellitus with hyperglycemia | CPT/HCPCS: 80053; 82607; 83540; 85025; 86592 ==

== ENCOUNTER → 2025-04-02 15:17 | Outpatient (BNVA) | payer MEDICARE, OTHER, SELFPAY | PROVIDERS: PCP Family Medicine; Visit Provider Family Medicine | DX: E11.65 Type 2 diabetes mellitus with hyperglycemia (principal) | CPT/HCPCS: 83036 ==